=== PATIENT | male | born 1990 | race Caucasian/White ===

== ENCOUNTER 2017-06-14 10:43 | Emergency (ER) | payer OTHER ==
[~2017-06-14] VITALS: Ht 203.2 cm; Wt 97.1 kg
[~2017-06-14 10:43] MED LIST: HYDR-34 PO; HYDR30CR71 RC; METR500T PO; OXYC-471 PO
--- NOTE | 2017-06-14 11:13 | ED Chest Pain ---
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 He was with a group of friends and went to jump over a 5 foot high fence. His foot got caught on it and he landed chest first on the ground. He has had persistent right sternal border chest pain with deep breathing and movement since then. He was given oxycodone which does help but the chest pain persists with deep breathing and movement. Today while at work at [employer] electric pain was intense so they insisted he be evaluated. 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 He denies shortness of breath, only complains of pain with deep breathing Timing/Duration: 2-3 days Severity/Quality: moderate ASA po ORTHOPHOTO TECH/DRAFTSMAN: No NTG SL ORTHOPHOTO TECH/DRAFTSMAN: No Allergies and Home Medications Allergies Coded Allergies: No Known Drug Allergies (Unverified , 03/14/15) Home Medications Oxycodone HCl/Acetaminophen 1 Each Tablet, 1-2 EACH PO Q4H PRN for PAIN, ( Reported) Patient Home Medication List Home Medication List Reviewed: Yes Review of Systems Constitutional: see HPI; No chills EENTM: No Symptoms Reported Respiratory: See HPI; Denies Cough, Denies Shortness of Air, Denies SOA With Exertion, Denies SOA at Rest Cardiovascular: No Symptoms Reported Gastrointestinal: No Symptoms Reported Genitourinary: No Symptoms Reported Musculoskeletal: no symptoms reported Skin: no symptoms reported Psychiatric/Neurological: No Symptoms Reported Endocrine: No Symptoms Reported Hematologic/Lymphatic: No Symptoms Reported Past Mrfwnmu-Sjiqai-Krglfn Hx Patient Social History Recent Foreign Travel: No Contact w/Someone Who Travel: No Immunizations Up To Date Date of Influenza Vaccine: Nov 13, 2014 Past Medical History Lobectomy Hemorrhoids Physical Exam Vital Signs Vital Signs - First Documented 06/14/17 11:05 Temp 97.6 Pulse 47 Resp 18 B/P (MAP) 135/105 (115) Pulse Ox 98 Capillary Refill : General Appearance: No Apparent Distress, WD/WN HEENT: PERRL/EOMI, TMs Normal Neck: Full Range of Motion, Normal Inspection Respiratory: Normal Breath Sounds, No Accessory Muscle Use, No Respiratory Distress Cardiovascular: Regular Rate, Rhythm, Normal Peripheral Pulses Gastrointestinal: Normal Bowel Sounds, Non Tender, Soft Extremity: Normal Capillary Refill, Normal Inspection Neurologic/Psychiatric: Alert, Oriented x3 Skin: Normal Color, Warm/Dry Progress/Results/Core Measures Lab Results Laboratory Tests Test 06/14/17 11:15 Range/Units White Blood Count 6.9 4.3-11.0 10^3/uL Red Blood Count 4.52 4.35-5.85 10^6/uL Hemoglobin 15.1 13.3-17.7 G/DL Hematocrit 43 40-54 % Mean Corpuscular Volume 95 80-99 FL Mean Corpuscular Hemoglobin 33 25-34 PG Mean Corpuscular Hemoglobin Concent 35 32-36 G/DL Red Cell Distribution Width 13.2 10.0-14.5 % Platelet Count 312 130-400 10^3/uL Mean Platelet Volume 9.3 7.4-10.4 FL Neutrophils (%) (Auto) 59 42-75 % Lymphocytes (%) (Auto) 27 12-44 % Monocytes (%) (Auto) 9 0-12 % Eosinophils (%) (Auto) 5 0-10 % Basophils (%) (Auto) 0 0-10 % Neutrophils # (Auto) 4.1 1.8-7.8 X 10^3 Lymphocytes # (Auto) 1.8 1.0-4.0 X 10^3 Monocytes # (Auto) 0.7 0.0-1.0 X 10^3 Eosinophils # (Auto) 0.3 0.0-0.3 10^3/uL Basophils # (Auto) 0.0 0.0-0.1 10^3/uL Sodium Level 138 135-145 MMOL/L Potassium Level 4.1 3.6-5.0 MMOL/L Chloride Level 105 98-107 MMOL/L Carbon Dioxide Level 28 21-32 MMOL/L Anion Gap 5 5-14 MMOL/L Blood Urea Nitrogen 9 7-18 MG/DL Creatinine 0.76 0.60-1.30 MG/DL Estimat Glomerular Filtration Rate > 60 BUN/Creatinine Ratio 12 Glucose Level 98 70-105 MG/DL Calcium Level 9.1 8.5-10.1 MG/DL Total Bilirubin 1.2 H 0.1-1.0 MG/DL Aspartate Amino Transf (AST/SGOT) 19 5-34 U/L Alanine Aminotransferase (ALT/SGPT) 31 0-55 U/L Alkaline Phosphatase 49 40-136 U/L Total Protein 7.2 6.4-8.2 GM/DL Albumin 4.3 3.2-4.5 GM/DL My Orders Orders - ELHAM VERGARA APRN Cbc With Automated Diff (06/14/17 11:08) Comprehensive Metabolic Panel (06/14/17 11:08) Nd-Djfhjmm-Jqzdgh (Order) (06/14/17 11:08) Ct Chest/Abdomen W (06/14/17 11:08) Iohexol Injection (Omnipaque 350 Mg/Ml 1 (06/14/17 11:15) Sodium Chloride Flush (Catheter Flush Sy (06/14/17 11:15) Ns (Ivpb) (Sodium Chloride 0.9%) (06/14/17 11:15) Medications Given in ED Current Medications Medications Dose Ordered Sig/Clarke Route Start Time Stop Time Status Last Admin Dose Admin Iohexol 100 ml ONCE ONCE IV 06/14/17 11:15 06/14/17 11:16 DC 06/14/17 11:32 100 ML Sodium Chloride 10 ml NEEDED PRN IV 06/14/17 11:15 06/14/17 11:32 10 ML Sodium Chloride 250 ml ONCE ONCE IV 06/14/17 11:15 06/14/17 11:16 DC 06/14/17 11:32 80 ML Vital Signs/I&O 06/14/17 11:05 Temp 97.6 Pulse 47 Resp 18 B/P (MAP) 135/105 (115) Pulse Ox 98 Diagonstic Imaging: CT Plain Films/CT/US/NM/MRI: chest Comments NAME: ERICKA DEMPSEY Dorothy [facility] REC#: [id number] PT STATUS: REG ER : 1990 PHYSICIAN: ELHAM VERGARA APRN ADMIT DATE: 06/14/17/ER Draft Date of Exam:06/14/17 CT CHEST/ABDOMEN W PROCEDURE: CT chest and abdomen with contrast. TECHNIQUE: Multiple contiguous axial images were obtained through the chest and abdomen after the administration of intravenous contrast. INDICATION: Trauma, fall onto the chest with pain in the right chest and shoulder region. CT chest: No mediastinal hematoma or great vessel injury is seen. No pericardial fluid is seen. No pleural fluid is identified. There is minimal pleural thickening on the right, likely from prior surgery. No parenchymal contusion or pneumothorax is identified. The ribs and sternum appear intact. Bony structures are unremarkable. CT abdomen: No focal liver or splenic laceration is identified. The pancreas is unremarkable. There is no adrenal hematoma. No renal injury is seen. Aorta is unremarkable. No free fluid in the abdomen is identified. The bowel loops are unremarkable. IMPRESSION: Unremarkable CT of the chest and abdomen. No acute features detected. Dictated on workstation # [id number] Dict: 06/14/17 1140 Trans: 06/14/17 1200 [place] [id number] Interpreted by: DANIEL RINALDI MD Electronically signed by: Departure Communication (Admissions) CT report from radiology is unremarkable. By my interpretation there might be a nondisplaced right third anterior rib fracture. Impression Primary Impression: Rib pain Disposition: 01 HOME, SELF-CARE Condition: Stable Departure-Patient Inst. Decision time for Depature: 12:04 Referrals: [facility] (PCP/Family) Primary Care Physician Patient Instructions: Rib Fracture (DC) Add. Discharge Instructions: 1. Pain medication as directed 2. Return to ER for any concerns 3. Follow-up with [facility] student health or your physician later next week for recheck. Work/School Note: Work Release Form Date Seen in the Emergency Department: June 14, 2017 Return to Work: June 19, 2017 ELHAM VERGARA APRN June 14, 2017 11:13
[2017-06-14] MEDS ORDERED: CATHETER FLUSH 10 ML SYR IV PRN (11:15)
[2017-06-14] MEDS ORDERED: IOHEXOL 350 MG/ML 100 ML (OMNIPAQUE 350) VIAL IV ONE (11:15)
[2017-06-14] MEDS ORDERED: NS 250 ML (IVPB) BAG IV ONE (11:15)
[2017-06-14 11:25] LABS: BASOPHILS % (AUTO) 0 % (0-10); EOSINOPHILS # (AUTO) 0.3 10^3/uL (0.0-0.3); EOSINOPHILS % (AUTO) 5 % (0-10); HEMATOCRIT 43 % (40-54); HEMOGLOBIN 15.1 G/DL (13.3-17.7); LYMPHOCYTES # (AUTO) 1.8 X 10^3 (1.0-4.0); LYMPHOCYTES % (AUTO) 27 % (12-44); MEAN CORPUSCULAR HEMOGLOBIN 33 PG (25-34); MEAN CORPUSCULAR HGB CONC 35 G/DL (32-36); MEAN CORPUSCULAR VOLUME 95 FL (80-99); MEAN PLATELET VOLUME 9.3 FL (7.4-10.4); MONOCYTES # (AUTO) 0.7 X 10^3 (0.0-1.0); MONOCYTES % (AUTO) 9 % (0-12); NEUTROPHILS # (AUTO) 4.1 X 10^3 (1.8-7.8); NEUTROPHILS % (AUTO) 59 % (42-75); PLATELET COUNT 312 10^3/uL (130-400); RED BLOOD COUNT 4.52 10^6/uL (4.35-5.85); RED CELL DISTRIBUTION WIDTH 13.2 % (10.0-14.5); WHITE BLOOD COUNT 6.9 10^3/uL (4.3-11.0)
[2017-06-14 11:43] LABS: ALANINE AMINOTRANSFERASE 31 U/L (0-55); ALBUMIN 4.3 GM/DL (3.2-4.5); ALKALINE PHOSPHATASE 49 U/L (40-136); BILIRUBIN,TOTAL 1.2 MG/DL (0.1-1.0); BUN/CREATININE RATIO 12; CALCIUM 9.1 MG/DL (8.5-10.1); CARBON DIOXIDE 28 MMOL/L (21-32); CHLORIDE 105 MMOL/L (98-107); CREATININE SERUM 0.76 MG/DL (0.60-1.30); GFR ESTIMATED > 60; GLUCOSE 98 MG/DL (70-105); POTASSIUM 4.1 MMOL/L (3.6-5.0); SODIUM 138 MMOL/L (135-145); TOTAL PROTEIN 7.2 GM/DL (6.4-8.2)
--- NOTE | 2017-06-14 12:00 | Diagnostic Imaging Report ---
PROCEDURE: CT chest and abdomen with contrast. TECHNIQUE: Multiple contiguous axial images were obtained through the chest and abdomen after the administration of intravenous contrast. INDICATION: Trauma, fall onto the chest with pain in the right chest and shoulder region. CT chest: No mediastinal hematoma or great vessel injury is seen. No pericardial fluid is seen. No pleural fluid is identified. There is minimal pleural thickening on the right, likely from prior surgery. No parenchymal contusion or pneumothorax is identified. The ribs and sternum appear intact. Bony structures are unremarkable. CT abdomen: No focal liver or splenic laceration is identified. The pancreas is unremarkable. There is no adrenal hematoma. No renal injury is seen. Aorta is unremarkable. No free fluid in the abdomen is identified. The bowel loops are unremarkable. IMPRESSION: Unremarkable CT of the chest and abdomen. No acute features detected. Dictated by: Dictated on workstation # [id number]
[2017-06-14 12:25] VITALS: BP 128/97
--- OUTSIDE RECORDS SUMMARY | 2017-06-14 18:35 | XMS REPORT | Continuity of Care Document ---
Author Author [facility] Organization [facility] Address Unknown Phone Unavailable Allergies Active Description Code Type Severity Reaction Onset Reported/Identified Relationship to Patient Clinical Status Yes No Known Drug Allergies [id number] Drug Allergy Unknown N/A 03/14/2015 Medications There is no data. 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 Results Test Result Range Complete blood count (CBC) with automated white blood cell (WBC) differential - 06/14/17 11:15 Blood leukocytes automated count (number/volume) 6.9 10*3/uL 4.3-11.0 Blood erythrocytes automated count (number/volume) 4.52 10*6/uL 4.35-5.85 Venous blood hemoglobin measurement (mass/volume) 15.1 g/dL 13.3-17.7 Blood hematocrit (volume fraction) 43 % 40-54 Automated erythrocyte mean corpuscular volume 95 [foz_us] 80-99 Automated erythrocyte mean corpuscular hemoglobin (mass per erythrocyte) 33 pg 25-34 Automated erythrocyte mean corpuscular hemoglobin concentration measurement ( mass/volume) 35 g/dL 32-36 Automated erythrocyte distribution width ratio 13.2 % 10.0-14.5 Automated blood platelet count (count/volume) 312 10*3/uL 130-400 Automated blood platelet mean volume measurement 9.3 [foz_us] 7.4-10.4 Automated blood neutrophils/100 leukocytes 59 % 42-75 Automated blood lymphocytes/100 leukocytes 27 % 12-44 Blood monocytes/100 leukocytes 9 % 0-12 Automated blood eosinophils/100 leukocytes 5 % 0-10 Automated blood basophils/100 leukocytes 0 % 0-10 Blood neutrophils automated count (number/volume) 4.1 10*3 1.8-7.8 Blood lymphocytes automated count (number/volume) 1.8 10*3 1.0-4.0 Blood monocytes automated count (number/volume) 0.7 10*3 0.0-1.0 Automated eosinophil count 0.3 10*3/uL 0.0-0.3 Automated blood basophil count (count/volume) 0.0 10*3/uL 0.0-0.1 Comprehensive metabolic panel - 06/14/17 11:15 Serum or plasma sodium measurement (moles/volume) 138 mmol/L 135-145 Serum or plasma potassium measurement (moles/volume) 4.1 mmol/L 3.6-5.0 Serum or plasma chloride measurement (moles/volume) 105 mmol/L 98-107 Carbon dioxide 28 mmol/L 21-32 Serum or plasma anion gap determination (moles/volume) 5 mmol/L 5-14 Serum or plasma urea nitrogen measurement (mass/volume) 9 mg/dL 7-18 Serum or plasma creatinine measurement (mass/volume) 0.76 mg/dL 0.60-1.30 Serum or plasma urea nitrogen/creatinine mass ratio 12 NRG Serum or plasma creatinine measurement with calculation of estimated glomerular filtration rate > NRG Serum or plasma glucose measurement (mass/volume) 98 mg/dL 70-105 Serum or plasma calcium measurement (mass/volume) 9.1 mg/dL 8.5-10.1 Serum or plasma total bilirubin measurement (mass/volume) 1.2 mg/dL 0.1-1.0 Serum or plasma alkaline phosphatase measurement (enzymatic activity/volume) 49 U/L 40-136 Serum or plasma aspartate aminotransferase measurement (enzymatic activity/ volume) 19 U/L 5-34 Serum or plasma alanine aminotransferase measurement (enzymatic activity/volume ) 31 U/L 0-55 Serum or plasma protein measurement (mass/volume) 7.2 g/dL 6.4-8.2 Serum or plasma albumin measurement (mass/volume) 4.3 g/dL 3.2-4.5 Encounters ACCT No. Visit Date/Time Discharge Status Pt. Type Provider Facility Loc./Unit Complaint [id number] 03/23/2015 09:35:00 03/23/2015 15:00:00 [id number] 03/20/2015 05:38:00 03/20/2015 23:59:59 CLS Outpatient JAMES NICE MD [facility] PREOP [id number] 03/14/2015 02:59:00 03/14/2015 03:31:00 DIS Emergency ARNEL DANIELLE, KENN Steward [facility] ER [id number] 06/14/2017 10:45:00 ACT Emergency ELHAM VERGARA APRN [facility] ER CP [id number] 06/13/2017 12:10:00 ACT Outpatient TRICIA AMAYA APRN [facility] RAD R07.81
== END 2017-06-14 12:25 | disposition home or self-care (01) ==
LOC: EDUNIT# 10:43 → ER 10:45
DX: R07.81 Pleurodynia (principal); J43.9 Emphysema, unspecified; Z90.2 Acquired absence of lung [part of]
CPT/HCPCS: 36415; 71260; 74160; 80053; 85025; 99283

== ENCOUNTER 2020-04-13 10:53 | Emergency (ER) | payer OTHER ==
[~2020-04-13] VITALS: Ht 172.7 cm; Wt 104.5 kg
[~2020-04-13 10:53] MED LIST changes: -OXYC-471 PO; +OXYC1TAB11 PO
[2020-04-13] MEDS ORDERED: ONDANSETRON 4 MG (ZOFRAN) ORAL DISSOLVE TAB SL ONE (12:00)
[2020-04-13] MEDS ORDERED: LIDOCAINE 2% VISCOUS 15 ML UDC PO ONE (12:00)
[2020-04-13] MEDS ORDERED: ANTACID SUSP 30 ML UDC (MYLANTA) PO ONE (12:00)
--- NOTE | 2020-04-13 13:26 | ED General ---
General Chief Complaint: Abdominal/GI Problems Stated Complaint: PRESSURE WHEN SWALLOWING Nursing Triage Note: AMB TO ED C/O BURNING FEELING IN CHEST SINCE THRUSDAY. WORSE WHEN EATING WAS SEEN AT URGENT CARE ON SAT AND STARTED ON HYOSCYAMINE IS NOT HELPING. Nursing Sepsis Screen: No Definite Risk Source of Information: Patient Exam Limitations: No Limitations History of Present Illness Date Seen by Provider: Apr 13, 2020 Time Seen by Provider: 11:41 Initial Comments This 29-year-old young man presents to the emergency room with complaints of lower chest pain that is burning and sharp in nature intermittently for the past several days. Pain is specifically triggered by swallowing food or fluid. He has felt fatigued. He took a Prilosec 3 days ago which did not help. 2 days ago he was tested for COVID-19 and this result was reportedly negative. Patient admits to frequently drinking 5-7 beers multiple days per week but not daily. He denies vomiting or diarrhea. Allergies and Home Medications Allergies Coded Allergies: No Known Drug Allergies (Unverified , 03/14/15) Home Medications Famotidine 20 Mg Tablet, 20 MG PO BID Prescribed by: EDIL MORGAN on 04/13/20 1331 Omeprazole 20 Mg Capsule.dr, 20 MG PO BID Prescribed by: EDIL MORGAN on 04/13/20 1331 Oxycodone HCl/Acetaminophen 1 Each Tablet, 1-2 EACH PO Q4H PRN for PAIN, (Reported) Sucralfate 1 Gm Tablet, 1 GM PO QID Crush or dissolve into 5-10 mL water to make a slurry. Take 30 min before meals and bed. Prescribed by: EDIL MORGAN on 04/13/20 1331 Tramadol HCl 50 Mg Tablet, 50 MG PO Q6H PRN for PAIN-BREAKTHROUGH Prescribed by: EDIL MORGAN on 04/13/20 1332 Patient Home Medication List Home Medication List Reviewed: Yes Review of Systems Review of Systems Constitutional: no symptoms reported EENTM: no symptoms reported Respiratory: no symptoms reported Cardiovascular: no symptoms reported Gastrointestinal: see HPI Genitourinary: no symptoms reported Musculoskeletal: no symptoms reported Skin: no symptoms reported Psychiatric/Neurological: No Symptoms Reported Hematologic/Lymphatic: No Symptoms Reported Past Fooycvz-Hcipwr-Xkmcps Hx Past Med/Social Hx: Reviewed Nursing Past Med/Soc Hx Patient Social History Alcohol Use: Regular Use Alcohol Beverage of Choice: Beer Smoking Status: Never a Smoker Recent Infectious Disease Expo: No Immunizations Up To Date Date of Influenza Vaccine: Nov 13, 2014 Past Medical History Surgeries: Yes Lobectomy Respiratory: Yes Pneumonia (As a child requiring lobectomy long hospital stay) Cardiac: No Neurological: No Genitourinary: No Gastrointestinal: Yes Hemorrhoids Musculoskeletal: No Endocrine: No HEENT: No Cancer: No Psychosocial: Yes (Frequent binge drinking) Physical Exam Vital Signs Vital Signs - First Documented 04/13/20 11:20 Temp 36.8 Pulse 60 Resp 18 B/P (MAP) 144/86 (105) Pulse Ox 97 Capillary Refill : Less Than 3 Seconds Height, Weight, BMI Height: 6'8.00" Weight: 214lbs. 0.0oz. 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 Skin: Normal Color, Warm/Dry Progress/Results/Core Measures Suspected Sepsis Recent Fever Within 48 Hours: No Infection Criteria Present: None New/Unexplained Altered Menta: No Sepsis Screen: No Definite Risk SIRS Temperature: Pulse: 60 Respiratory Rate: 18 Blood Pressure 144 /86 Mean: 105 Results/Orders My Orders Orders - EDIL SPENCE MD Ondansetron Oral Dissolve Tab (Zofran (04/13/20 12:00) Lidocaine 2% Viscous 15 Ml (Xylocaine Vi (04/13/20 12:00) Antacid Suspension (Mylanta Suspension (04/13/20 12:00) Medications Given in ED Vital Signs/I&O 04/13/20 04/13/20 11:20 13:43 Temp 36.8 36.8 Pulse 60 64 Resp 18 18 B/P (MAP) 144/86 (105) 155/89 (105) Pulse Ox 97 97 Capillary Refill : Less Than 3 Seconds Blood Pressure Mean: 105 Progress Note : Progress Note GI cocktail resulted in positive but minimal improvement. See discharge instructions for discussion. Departure Impression Primary Impression: Odynophagia Disposition: 01 HOME, SELF-CARE Condition: Improved Departure-Patient Inst. Decision time for Depature: 13:20 Referrals: [facility] PR[facility] DO NO,LOCAL PHYSICIAN (PCP) Primary Care Physician Patient Instructions: Acid Reflux and Gastroesophageal Reflux Disease in Adults, Gastritis Add. Discharge Instructions: Take omeprazole (Prilosec) and famotidine (Pepcid) twice daily for at least 2 months as prescribed. Also take Carafate (sucralfate) 30 minutes before eating or drinking at mealtime and then again before bed. Crush or dissolve in 5 to 10 mL water to make a slurry. Make a follow-up appointment with your doctor. If symptoms persist, you should be seen by a surgeon for endoscopy (videoscope) of your esophagus and stomach. Dr. Pratt's information is listed below for your convenience. Avoid the following: Eating large meals, eating close to bedtime, caffeine, carbonation, citrus fruits and juices, tomato products, chocolate, mints, ALCOHOL, TOBACCO, spicy foods, fatty or greasy foods, NSAID medications such as ibuprofen or naproxen, or anything else you know irritate your stomach. Tylenol (acetaminophen) up to 1000 mg every 6 hours is safe to take for pain. For pain not controlled by Tylenol, add Ultram (tramadol) as prescribed. Call with questions or concerns. Return to the ER if you have worsening symptoms. Pain should be gradually improving over 1 to 2 weeks. All discharge instructions reviewed with patient and/or family. Voiced understanding. Scripts Tramadol HCl (Ultram) 50 Mg Tablet 50 MG PO Q6H PRN for PAIN-BREAKTHROUGH, #10 TAB Prov: EDIL SPENCE MD 04/13/20 Sucralfate (Carafate) 1 Gm Tablet 1 GM PO QID, #120 TAB Crush or dissolve into 5-10 mL water to make a slurry. Take 30 min before meals and bed. Prov: EDIL SPENCE MD 04/13/20 Omeprazole (Omeprazole) 20 Mg Capsule. 20 MG PO BID, #60 CAP Prov: EDIL SPENCE MD 04/13/20 Famotidine (Pepcid) 20 Mg Tablet 20 MG PO BID, #60 TAB Prov: EDIL SPENCE MD 04/13/20 EDIL SPENCE MD Apr 13, 2020 13:26
[2020-04-13] MEDS ORDERED: SUCR1TAB36 PO (13:31)
[2020-04-13] MEDS ORDERED: FAMO-119 PO (13:31)
[2020-04-13] MEDS ORDERED: OMEP20CA18 PO (13:31)
[2020-04-13] MEDS ORDERED: TRAM-42 PO (13:31)
[2020-04-13 13:43] VITALS: BP 155/89
== END 2020-04-13 13:42 | disposition home or self-care (01) ==
LOC: EDUNIT# 10:53 → ER 10:57
DX: R13.10 Dysphagia, unspecified (principal)
CPT/HCPCS: 99283

== ENCOUNTER 2022-05-27 22:29 | Emergency (ER) | payer SELFPAY ==
[~2022-05-27] VITALS: Ht 203.2 cm; Wt 99.7 kg
[~2022-05-27 22:29] MED LIST changes: +FAMO-119 PO; +OMEP20CA18 PO; +SUCR1TAB36 PO; +TRAM-42 PO
--- NOTE | 2022-05-27 22:57 | ED GI ---
General Chief Complaint: Abdominal/GI Problems Stated Complaint: VOMITING/DIARRHEA Nursing Triage Note: C/O VOMITTING/DIARRHEA/CRAMPING TODAY. History of Present Illness Date Seen by Provider: May 27, 2022 Time Seen by Provider: 10:50 Initial Comments 31-year-old male presents with abdominal cramping, vomiting diarrhea this around 11:00 today. Patient thinks he may be got some food poisoning after eating at [employer] yesterday. He denies any fevers or chills. No known sick contacts Allergies and Home Medications Allergies Coded Allergies: No Known Drug Allergies (Unverified , 03/14/15) Patient Home Medication List Home Medication List Reviewed: Yes No Active Prescriptions or Reported Meds Review of Systems Review of Systems Constitutional: No chills, No fever EENTM: No Symptoms Reported Respiratory: No Symptoms Reported Cardiovascular: No Symptoms Reported Gastrointestinal: See HPI, Diarrhea, Nausea, Vomiting Genitourinary: No Symptoms Reported Musculoskeletal: no symptoms reported Skin: no symptoms reported Psychiatric/Neurological: No Symptoms Reported Endocrine: No Symptoms Reported Past Lucgoof-Hnzglp-Qbhmey Hx Patient Social History Tobacco Use?: No Substance use?: No Alcohol Use?: Yes Alcohol Frequency: Once in a while Pt feels they are or have been: No Immunizations Up To Date First/Initial COVID19 Vaccinat: X2 Past Medical History Surgery/Hospitalization HX: EMPYEMA, ,LUNG RESECTION Surgeries: Yes Lobectomy Respiratory: Yes Pneumonia Cardiac: No Neurological: No Genitourinary: No Gastrointestinal: Yes Hemorrhoids Musculoskeletal: No Endocrine: No HEENT: No Cancer: No Psychosocial: Yes (Frequent binge drinking) Physical Exam Vital Signs Vital Signs - First Documented 05/27/22 22:37 Temp 37.3 Pulse 88 Resp 16 B/P (MAP) 135/77 (96) Pulse Ox 100 O2 Delivery Room Air Capillary Refill : Less Than 3 Seconds Height/Weight/BMI Height: 6'8.00" Weight: 214lbs. 0.0oz. [id number]; 24.00 BMI Method:Stated General Appearance: other (Vomiting) Neck: full range of motion, supple Respiratory: lungs clear, normal breath sounds Cardiovascular: normal peripheral pulses, regular rate, rhythm Neurologic/Psychiatric: alert, normal mood/affect, oriented x 3 Skin: normal color, warm/dry Progress/Results/Core Measures Results/Orders Lab Results Laboratory Tests Test 05/27/22 23:04 Range/Units White Blood Count 12.6 H 4.3-11.0 10^3/uL Red Blood Count 4.91 4.30-5.52 10^6/uL Hemoglobin 15.6 13.3-17.7 g/dL Hematocrit 44 40-54 % Mean Corpuscular Volume 89 80-99 fL Mean Corpuscular Hemoglobin 32 25-34 pg Mean Corpuscular Hemoglobin Concent 36 32-36 g/dL Red Cell Distribution Width 12.0 10.0-14.5 % Platelet Count 301 130-400 10^3/uL Mean Platelet Volume 9.3 9.0-12.2 fL Immature Granulocyte % (Auto) 0 % Neutrophils (%) (Auto) 92 H 42-75 % Lymphocytes (%) (Auto) 3 L 12-44 % Monocytes (%) (Auto) 5 0-12 % Eosinophils (%) (Auto) 0 0-10 % Basophils (%) (Auto) 0 0-10 % Neutrophils # (Auto) 11.7 H 1.8-7.8 10^3/uL Lymphocytes # (Auto) 0.3 L 1.0-4.0 10^3/uL Monocytes # (Auto) 0.6 0.0-1.0 10^3/uL Eosinophils # (Auto) 0.0 0.0-0.3 10^3/uL Basophils # (Auto) 0.0 0.0-0.1 10^3/uL Immature Granulocyte # (Auto) 0.0 0.0-0.1 10^3/uL Neutrophils % (Manual) 94 % Lymphocytes % (Manual) 2 % Monocytes % (Manual) 4 % Blood Morphology Comment NORMAL Sodium Level 140 135-145 MMOL/L Potassium Level 3.8 3.6-5.0 MMOL/L Chloride Level 107 98-107 MMOL/L Carbon Dioxide Level 19 L 21-32 MMOL/L Anion Gap 14 5-14 MMOL/L Blood Urea Nitrogen 18 7-18 MG/DL Creatinine 0.91 0.60-1.30 MG/DL Estimat Glomerular Filtration Rate 116 BUN/Creatinine Ratio 20 Glucose Level 129 H 70-105 MG/DL Calcium Level 9.5 8.5-10.1 MG/DL Corrected Calcium 8.5-10.1 MG/DL Total Bilirubin 1.6 H 0.1-1.0 MG/DL Aspartate Amino Transf (AST/SGOT) 15 5-34 U/L Alanine Aminotransferase (ALT/SGPT) 28 0-55 U/L Alkaline Phosphatase 42 40-136 U/L Total Protein 7.8 6.4-8.2 GM/DL Albumin 4.7 H 3.2-4.5 GM/DL Lipase 4 L 8-78 U/L My Orders Orders - MCKEON,LISA L DO Cbc With Automated Diff (05/27/22 22:59) Comprehensive Metabolic Panel (05/27/22 22:59) Lipase (05/27/22 22:59) Ondansetron Injection (Zofran Injectio (05/27/22 23:00) Lactated Ringers (Lr 1000 Ml Iv Solution (05/27/22 22:59) Famotidine Injection (Pepcid Injection) (05/27/22 22:59) Manual Differential (05/27/22 23:04) Medications Given in ED Current Medications Medications Dose Ordered Sig/Clarke Route Start Time Stop Time Status Last Admin Dose Admin Ondansetron HCl 4 mg ONCE ONCE IVP 05/27/22 23:00 05/27/22 23:01 DC 05/27/22 23:07 4 MG Vital Signs/I&O 05/27/22 22:37 Temp 37.3 Pulse 88 Resp 16 B/P (MAP) 135/77 (96) Pulse Ox 100 O2 Delivery Room Air Blood Pressure Mean: 96 Progress Progress Note : Progress Note Patient's diagnostics were ordered reviewed and interpreted by me. He does have a slight elevation of white count which is likely due to his vomiting. Patient CMP does not have any significant acute concerning findings. Patient's physical exam does not show any significant findings. Patient is likely had infectious gastroenteritis with either viral versus a food poisoning. Discussed with him that both are self-limiting. We will provide him some Zofran prescription. Recommend he start with a clear liquid diet. He is stable and discharged home. Departure Impression Primary Impression: Infectious gastroenteritis and colitis, unspecified Disposition: HOME, SELF-CARE Condition: Stable Departure-Patient Inst. Referrals: NO,LOCAL PHYSICIAN (PCP/Family) Primary Care Physician Patient Instructions: CLEAR LIQUID DIET ADULT/CHILD, [id number] Add. Discharge Instructions: Clear liquid diet for 24 to 36 hours and advance as tolerated. Follow-up with y our primary care provider if symptoms or not improving over the next 36 to 48 hours, return to the ER with any concerns All discharge instructions reviewed with patient and/or family. Voiced understanding. Scripts Ondansetron (Ondansetron Odt) 4 Mg Tab.rapdis 4 MG PO Q6H PRN for NAUSEA/VOMITING, #20 TAB 0 Refills Prov: LISA MCKEON DO 05/27/22 LISA MCKEON DO May 27, 2022 22:57
[2022-05-27] MEDS ORDERED: FAMOTIDINE 20MG/2ML IV (PEPCID) IV STA (22:59)
[2022-05-27] MEDS ORDERED: LACTATED RINGERS 1,000 ML IV STA (22:59)
[2022-05-27] MEDS ORDERED: ONDANSETRON 4 MG/2 ML (SDV) Z0FRAN IVP ONE (23:00)
[2022-05-27 23:14] LABS: BASOPHILS % (AUTO) 0 % (0-10); EOSINOPHILS % (AUTO) 0 % (0-10); HEMATOCRIT 44 % (40-54); HEMOGLOBIN 15.6 g/dL (13.3-17.7); LYMPHOCYTES # (AUTO) 0.3 10^3/uL (1.0-4.0); LYMPHOCYTES % (AUTO) 3 % (12-44); MEAN CORPUSCULAR HEMOGLOBIN 32 pg (25-34); MEAN CORPUSCULAR HGB CONC 36 g/dL (32-36); MEAN CORPUSCULAR VOLUME 89 fL (80-99); MEAN PLATELET VOLUME 9.3 fL (9.0-12.2); MONOCYTES # (AUTO) 0.6 10^3/uL (0.0-1.0); MONOCYTES % (AUTO) 5 % (0-12); NEUTROPHILS # (AUTO) 11.7 10^3/uL (1.8-7.8); NEUTROPHILS % (AUTO) 92 % (42-75); PLATELET COUNT 301 10^3/uL (130-400); WHITE BLOOD COUNT 12.6 10^3/uL (4.3-11.0)
[2022-05-27 23:24] LABS: ALBUMIN 4.7 GM/DL (3.2-4.5); CHLORIDE 107 MMOL/L (98-107); POTASSIUM 3.8 MMOL/L (3.6-5.0); SODIUM 140 MMOL/L (135-145)
[2022-05-27 23:26] LABS: CALCIUM 9.5 MG/DL (8.5-10.1)
[2022-05-27 23:27] LABS: GLUCOSE 129 MG/DL (70-105); TOTAL PROTEIN 7.8 GM/DL (6.4-8.2)
[2022-05-27 23:28] LABS: CARBON DIOXIDE 19 MMOL/L (21-32)
[2022-05-27 23:29] LABS: BILIRUBIN,TOTAL 1.6 MG/DL (0.1-1.0)
[2022-05-27 23:30] LABS: ALKALINE PHOSPHATASE 42 U/L (40-136); CREATININE SERUM 0.91 MG/DL (0.60-1.30); GFR ESTIMATED 116
[2022-05-27 23:32] LABS: BUN/CREATININE RATIO 20
[2022-05-27 23:33] LABS: ALANINE AMINOTRANSFERASE 28 U/L (0-55)
[2022-05-27 23:34] LABS: LIPASE 4 U/L (8-78)
[2022-05-27 23:37] LABS: LYMPHOCYTES % (MANUAL) 2 %; MONOCYTES % (MANUAL) 4 %; NEUTROPHILS % (MANUAL) 94 %; RBC MORPH NORMAL
[2022-05-27] MEDS ORDERED: ONDA4TAB11 PO (23:45)
[2022-05-27 23:46] VITALS: BP 132/68
== END 2022-05-27 23:48 | disposition home or self-care (01) ==
LOC: EDUNIT# 22:29 → ER 22:32
DX: A09 Infectious gastroenteritis and colitis, unspecified (principal)
CPT/HCPCS: 36415; 80053; 83690; 85007; 85027